=== PATIENT | female | born 1955 | race Hispanic/Latino ===

== ENCOUNTER 2025-02-04 05:30 | Observation (INO) | payer BC ==
[2025-02-01 10:23] LABS: BASOPHILS % 1.2 % (0.0-1.0); EOSINOPHILS % 7.3 % (0.0-6.0); LYMPHOCYTES % 25.3 % (18.0-39.1); MONOCYTES % 11.6 % (4.4-11.3); NEUTROPHILS % 54.1 % (38.7-80.0); RED CELL DISTRIBUTION WIDTH 13.1 % (11.7-14.4)
[~2025-02-04] VITALS: Ht 157.5 cm; Wt 86.6 kg
[2025-02-04] MEDS: LACTATED RINGER'S 1,000 ML ONE (06:03)
[2025-02-04] MEDS: GABAPENTIN 300 MG CAP ONE (06:04)
[2025-02-04] MEDS: DEXAMETHASONE SOD PHOS 10 MG/1 ML VIAL ONE (06:04)
[2025-02-04] MEDS: CELECOXIB 200 MG CAP ONE (06:04)
[2025-02-04] MEDS ORDERED: PROPOFOL IV EMULSION 10 MG/ML 20 ML VIAL ONE (06:55)
[2025-02-04] MEDS ORDERED: LIDOCAINE HCL 2% LOCAL INJ 5 ML SDV VIAL INJ ONE (06:56)
[2025-02-04] MEDS ORDERED: ROCURONIUM BROMIDE 1 ML IV ONE (07:06)
[2025-02-04] MEDS ORDERED: ALBUTEROL 90 MCG/ACT INHALER INH ONE (07:10)
[2025-02-04] MEDS ORDERED: ACETAMINOPHEN 1000 MG/100 ML 100 ML IV ONE (07:21)
[2025-02-04] MEDS ORDERED: ESMOLOL HCL 100MG/10ML 10 MG/ML VIAL ONE (07:27)
[2025-02-04] MEDS ORDERED: DEXMEDETOMIDINE HCL 2 ML ONE (07:27)
[2025-02-04] MEDS ORDERED: ROPIVACAINE/EPI/CLONIDINE/KET 50 ML SYRINGE INJ ONE (08:00)
[2025-02-04] MEDS ORDERED: PHENYLEPHRINE HCL 1% 10 MG/ML VIAL ONE (08:08)
[2025-02-04] MEDS ORDERED: ONDANSETRON HCL INJ 2MG/ML 2ML 2 MG/ML VIAL ONE (08:08)
[2025-02-04] MEDS ORDERED: FAMOTIDINE 20 MG/2 ML VIAL IV ONE (08:08)
[2025-02-04] MEDS ORDERED: GLYCOPYRROLATE INJ 0.2 MG/ML VIAL ONE (08:21)
[2025-02-04] MEDS ORDERED: NEOSTIGMINE 1 MG/ML 10ML VIAL ONE (08:21)
[2025-02-04] MEDS: SODIUM CHLORIDE 0.9% 1000ML 1,000 ML IV SCH (08:30)
[2025-02-04] MEDS ORDERED: HYDROCODONE/APAP 7.5MG-325MG 1 EA TAB PO PRN (08:30)
[2025-02-04] MEDS ORDERED: DIPHENHYDRAMINE HCL INJ 50 MG/ML VIAL IV PRN (08:30)
[2025-02-04] MEDS ORDERED: HYDROCODONE/APAP 5MG-325MG TAB PO PRN (08:30)
[2025-02-04] MEDS ORDERED: DOCUSATE SODIUM 100 MG CAP PO PRN (08:30)
[2025-02-04] MEDS ORDERED: ONDANSETRON HCL INJ 2MG/ML 2ML 2 MG/ML VIAL IV PRN (08:30)
[2025-02-04 16:19] VITALS: BP 119/71; PULSE 69; RESP 18; TEMP 97.9; O2SAT 96
[2025-02-04 16:50] VITALS: PULSE 72; RESP 16; O2SAT 97
[2025-02-04] MEDS: CELECOXIB 200 MG CAP PO SCH (17:00)
[2025-02-04] MEDS: ASPIRIN 325 MG TAB PO SCH (17:00)
[2025-02-04] MEDS: CEFAZOLIN SODIUM 2 GM ONE (17:01)
[2025-02-04 20:35] VITALS: PULSE 75; RESP 16; O2SAT 97
[2025-02-05 01:56] VITALS: BP 136/69; PULSE 85; RESP 16; TEMP 97.8; O2SAT 97
[2025-02-05 04:00] VITALS: BP 110/66; PULSE 61; RESP 16; TEMP 98.4; O2SAT 98
[2025-02-05 08:20] VITALS: BP 107/60; PULSE 71; RESP 18; TEMP 97.9; O2SAT 98
[2025-02-05] MEDS ORDERED: ACETAMINOPHEN 1000 MG/100 ML IV PRN (08:30)
[2025-02-05 08:50] VITALS: BP 107/60; PULSE 71; RESP 18; TEMP 97.9; O2SAT 98
[2025-02-05 10:27] VITALS: PULSE 71; RESP 16; O2SAT 98
== END 2025-02-05 11:20 | disposition home or self-care (01) ==
LOC: OR 05:30 → PACU V 15:23 → IMCU 16:24 → MED/SURG 17:54
PROVIDERS: ADMIT Specialist; ATTEND Specialist
DX: M17.12 Unilateral primary osteoarthritis, left knee (principal); I10 Essential (primary) hypertension; E66.811 Obesity, class 1; Z68.34 Body mass index [BMI] 34.0-34.9, adult; Z01.812 Encounter for preprocedural laboratory examination
CPT/HCPCS: 27447; 36415 ×2; 73560; 85014; 85018; 85025; 86850; 86870; 86880; 86900; 86905; 94799 ×2; 97110; 97116; 97161; 97530 ×2; 99001; C1713 ×2; C1776 ×3; G0378 ×2; J0131; J0690 ×2; J1100; J1308; J2003; J2371; J2405; J2704; J2710; J7030 ×2; J7121